=== PATIENT | male | born 1990 | race Two or more races ===

== ENCOUNTER 2017-03-07 09:20 | Day surgery (SDC) | payer BC, OTHER ==
[~2017-03-07 09:20] MED LIST: PROPOFOL INJ 200 MG/20 ML VIAL IV ONE
[2017-03-07 11:52] VITALS: BP 118/72
--- NOTE | 2017-03-07 18:12 | Operative Report ---
Operative Report DATE OF SURGERY: 03/07/17 Operative Report: The risks, benefits and alternatives of the procedure including risks of bleeding, perforation requiring surgery are explained to the patient detail and informed consent is obtained. Patient is placed in the left lateral decubital position when he was taken back to the endoscopy suite. Timeout was called. Propofol medications administered. A rectal examination is done which did not reveal any masses, tears or fissures. An Olympus videoscope was inserted into the patient's rectum. It is carefully advanced all the way to the cecum. The cecum was identified by the usual anatomical landmarks including the ileocecal valve as well as the appendiceal office. Photodocumentation was obtained. The scope was then sequentially pulled back via the various segments of the colon including the ascending colon, hepatic flexure, transverse colon, splenic flexure, descending colon went to the rectosigmoid portions of the colon. Retroflexion maneuvers performed. 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 The risks of the colon is normal with normal haustra as well as blood vessel architecture. OPERATION: Colonoscopy with biopsy SURGEON: JEANNA MCMAHON ANESTHESIA: LMAC TISSUE REMOVED OR ALTERED: Rectal mucosal specimens obtained COMPLICATIONS: None. ESTIMATED BLOOD LOSS: None. INTRAOPERATIVE FINDINGS: As described above. Rest of the colon is without masses, AVMs, diverticulosis or polyps. PROCEDURE: Patient tolerated the procedure well. No immediate postprocedure complications are noted. Patient discharged in good condition. Discharge date 03/07/2017. Discharge diet: Regular. Discharge activity: Regular. 2-3 week follow-up to discuss findings. Patient is instructed to call the office or proceed to the emergency room should there be any further problems or questions. We will wait on pathology.
== END 2017-03-07 11:40 | disposition home or self-care (01) ==
LOC: END 09:20
PROVIDERS: ATTEND Internal Medicine Gastroenterology
PROC: 0DBP8ZX Excision of Rectum, Via Natural or Artificial Opening Endoscopic, Diagnostic (ICD-10-PCS; principal; 2017-03-07 11:30)
DX: K52.89 Other specified noninfective gastroenteritis and colitis (principal); K92.1 Melena
CPT/HCPCS: 45380; 88305 ×2; J2704; 810